=== PATIENT | female | born 2000 | race Caucasian/White ===

== ENCOUNTER → 2022-03-11 | Outpatient (CLI) | payer OTHER ==
--- NOTE | 2022-03-11 12:30 | XR ---
EXAMINATION TYPE: XR hand complete RT DATE OF EXAM: 03/11/2022 COMPARISON: NONE HISTORY: 21 year-old female S63.601A TECHNIQUE: 3 views FINDINGS: No acute fracture, subluxation, or dislocation is seen. No periostitis or osteolysis. IMPRESSION: No acute osseous abnormality seen.
== END | disposition home or self-care (01) ==
LOC: LABWHC1 11:06
PROVIDERS: ATTEND Emergency Medicine
DX: S63.601A Unspecified sprain of right thumb, initial encounter (principal); X58.XXXA Exposure to other specified factors, initial encounter; N91.2 Amenorrhea, unspecified
CPT/HCPCS: 36415; 84702

== ENCOUNTER → 2022-12-06 | Outpatient (CLI) | payer OTHER ==
--- NOTE | 2022-12-06 11:11 | XR ---
EXAMINATION TYPE: XR hand complete RT, XR wrist complete RT DATE OF EXAM: 12/06/2022 11:02 AM INDICATION: Patient age:Female; 22 years old; Reason for study: S63.601D, M25.531; [facility]. COMPARISON: Right hand radiograph 03/11/2022 TECHNIQUE: Frontal, lateral and oblique views of the right hand and wrist were obtained. Additional n avicular view of the right hand was obtained. FINDINGS: Normal alignment of the visualized joints. No acute osseous pathology is identified. No e vidence of soft tissue swelling. IMPRESSION: No acute osseous pathology.
== END | disposition home or self-care (01) ==
LOC: RADXRMAIN 10:37
PROVIDERS: ATTEND Emergency Medicine
DX: S63.601D Unspecified sprain of right thumb, subsequent encounter (principal); M25.531 Pain in right wrist